=== PATIENT | female | born 1985 | race Hispanic/Latino ===

== ENCOUNTER 2019-03-16 21:37 | Inpatient (IN) | payer BC ==
[2019-03-16 22:00] VITALS: BMI 25.0
[2019-03-16] MEDS ORDERED: Lactated Ringer's 1,000 ML IV ONE (22:21)
[2019-03-16] MEDS ORDERED: Lactated Ringer's 1,000 ML IV SCH (22:30)
[2019-03-17] MEDS ORDERED: Lactated Ringer's 1,000 ML IV ONE (00:16)
[2019-03-17] MEDS ORDERED: Oxytocin 30 UNIT in NS 500 ml 30 UNITS/500 ML BAG IV ONE ×3 (00:17→11:21)
[2019-03-17] MEDS ORDERED: OXYTOCIN/0.9 % NS 20 UNIT/1,000 ML BAG IV SCH (00:30)
[2019-03-17 00:50] LABS: BASO % 0.3 % (0.0-2.0); EOS % 0.1 % (0.0-4.0); HEMOGLOBIN 12.8 g/dL (12.0-16.0); LYMPH # 1.2 K/uL (1.0-4.3); LYMPH % 8.6 % (20.0-40.0); MEAN CELL VOLUME 86.3 fl (81.0-99.0); MEAN CORPUSCULAR HEMOGLOBIN 28.9 pg (27.0-31.0); MEAN CORPUSCULAR HGB CONC 33.5 g/dL (33.0-37.0); MEAN PLATELET VOLUME 8.7 fl (7.2-11.7); MONO # 0.8 K/uL (0.0-0.8); MONO % 5.7 % (0.0-10.0); NEUT # 12.3 K/uL (1.8-7.0); NEUT % 85.3 % (50.0-75.0); PLATELET COUNT 203 K/uL (130-400); RBC 4.44 Mil/uL (3.80-5.20); WHITE BLOOD COUNT 14.4 K/uL (4.8-10.8)
[2019-03-17] MEDS: Lactated Ringer's 1,000 ML IV SCH ×2 (01:43→02:04)
[2019-03-17 01:44] LABS: BANDS 2 % (0-2); LYMPHOCYTE 9 % (20-50); MONOCYTE 7 % (0-10); NEUTROPHIL 82 % (42-75); TOTAL CELLS COUNTED 100
[2019-03-17 01:46] LABS: BURR CELLS SLIGHT; LARGE PLATELETS PRESENT
[2019-03-17 01:48] LABS: PLATELET ESTIMATE NORMAL (NORMAL)
[2019-03-17] MEDS ORDERED: Bupivacaine HCl 0.5% PF (30 ml) Inj ONE (01:49)
[2019-03-17] MEDS ORDERED: Fentanyl/Bupivacaine HCl 250 ML EPI ONE (01:49)
--- NOTE | 2019-03-17 06:19 | OBHP ---
Datetime: 03/17/2019 01:04 IP Adm Impression: Term, intrauterine ; No Active Labor; Intact Membranes IP Chief Complaint Other: Painful CTX Pelvic Type - PN: Adequate Extremities - PN: Normal Abdomen - PN: Normal Back - PN: Normal Breast - PN: Not Done Lungs - PN: Normal Heart - PN: Normal Thyroid - PN: Normal Neurologic - PN: Normal HEENT - PN: Normal General - PN: Normal Presentation-Admit: Vertex FHR - Baseline A Provider: 125 Comments, ACOG Physical Exam: heart s1 s2 no extra heart sound lung clear abd BS+ non-tender Cervix 3, 75, -2 Gestation - Est Wks by US: 39.6 EGA AdmitDate IP: 39.6 Vital Signs Provider: Reviewed; Within Normal Limits IP Chief Complaint: Uterine contractions NICHD Variability Prov Fetus A: Moderate 6-25bpm NICHD Accel Fetus A IP Provider: 15X15 FHR Category Provider Fetus A: Category I Dilatation, Provider: 3 Effacement, Provider: 75 Station, Provider: -2 Genitourinary Exam: Normal DTRs - PN: Normal Datetime: 03/16/2019 22:04 IP Admit Plan: Observation/Evaluation Admit Comment, IP Provider: A 33 yo female 39.5 wk present to MICHELLE due to contraction started at 16:00 03/16/19. Pt state contraction increased from every 5 min to every 3min, Pt also report pin k discharge but no vaginal bleeding or water gush. Otherwise patient report good movement, she denies any nausea or vomiting, chest pain sob, abd pian, diarrhea, constipation or any other symptoms . pt report no complication during except for echogenic bowel and abdominal cirumference l agging in baby which she have been following with her doctor. PT last US last week vertex. PCP Dr. Tavo Onofre. Allergy Amox- hives medication: PNV PMH none PSH none PFH dad , mom healthy OBGYN none Social denies smoke drink or drug use. 22:29 Assessment and plan A 33 yo female 39.5 wk present to MICHELLE due to contraction started at 16:00 03/16/19. Contraction noted on tocometer strip reassuring vitals WNL Cervix 2-3, 50, -2 Send to L_D to observe follow up with change Shiv PGY1 Case discussed with Dr delgadillo OB Hospitalist note. Pt was examiend by me. chart reviewed. She wants to ambualte and see how her pain is. Currently she doees not want parisi managment. Discussion with pt about labor, pa in management options, delivery and care. She understands. Her qustions answered. KEATON DO Membranes, Provider: Intact Pool Provider: Negative Nitrazine Provider: IP Hx Assessment: The History has been Reviewed and is Current NICHD Decel Fetus A IP Provider: None
[2019-03-17] MEDS ORDERED: Lactated Ringer's 1,000 ML IV SCH (07:30)
--- NOTE | 2019-03-17 07:42 | OBPN ---
Datetime: 03/17/2019 07:20 IP Progress Impression: Normal progression of labor; Reassuring heart rate IP Progress Plan: Continue present management; Anticipate Vaginal Delivery Pool Provider: Positive Membranes, Provider: Ruptured Amniotic Fluid Color, Provider: Meconium, Light Contraction Comments Provider: occ FHR - Baseline A Provider: 140 Presentation-Admit: Vertex IP Progress Note Comment: She had epidural and feels muhc better - legs feel heavy and does't feel C TX pain. She had SROM/thick meconium at 4:20am. She was checked and SVE 4cm. She has occ CTX on yeni o. occ decels noted with recovery. When placed on lef tside, FHR tracing improved SVE 7-8cm good progress Hx thick mec - currently it appears light mec A: Active phase of labor PLAN: coninue to monitor FHR/labor progress Left lateral/IVF/O2 NICHD Accel Fetus A IP Provider: 10X10 FHR Category Provider Fetus A: Category I NICHD Variability Prov Fetus A: Moderate 6-25bpm Dilatation, Provider: 7-8 Effacement, Provider: 90 Station, Provider: -1 Datetime: 03/17/2019 01:04 Gestation - Est Wks by US: 39.6 Vital Signs Provider: Reviewed; Within Normal Limits Datetime: 03/16/2019 22:04 Nitrazine Provider: MINISTERIO Decel Fetus A IP Provider: None
[2019-03-17] MEDS ORDERED: Lidocaine 1% Inj (20ml) ONE (09:31)
[2019-03-17] MEDS ORDERED: Benzocaine/Menthol SPRAY TOP PRN ×2 (11:21→12:39)
[2019-03-17] MEDS ORDERED: Oxycodone/Acetaminophen 5/325 mg Tab PO PRN ×2 (11:21→12:39)
[2019-03-17] MEDS ORDERED: OXYTOCIN/0.9 % NS 20 UNIT/1,000 ML BAG IV ONE (11:21)
--- NOTE | 2019-03-17 12:44 | OBDS ---
DELIVERY PERSONNEL Delivery Doctor: Ashtyn Vo MD Ct Scan Technician: Chloe Miranda RN; Miquel Rodriguez RN Anesthesiologist: Dr. Richards MATERNAL INFORMATION Delivery Anesthesia: Epidural Medications in Delivery: 30mu pitocin in 500ml of .9% NS Placenta Cultured: No Maternal Complications: None Provider Comments: Delivered a live baby boy 10:02 AM the baby was bulb suctioned on the perineum th en transferred to maternal chest. The cord was clamped and cut 3 vessels noted cord blood was obtain ed and sent to the lab. The placenta was delivered at 10:06 AM intact. The estimated blood loss was 250 cc. The mother tolerated the procedure well there was a first-degree laceration was repaired wi th 2-0 repeat. There is also vaginal abrasion packing was placed. The baby went to the [facility] with Apgars of [phone] g LABOR SUMMARY EDC: 03/18/2019 00:00 No. Babies in Womb: 1 Attempted: No Labor Anesthesia: Epidural LABOR INFORMATION Reason for Induction: Not Applicable Onset of Labor: 03/16/2019 16:00 Complete Dilatation: 03/17/2019 09:06 Oxytocin: N/A Group B Beta Strep: Negative Antibiotics # of Doses: 0 Antibiotics Time of Last Dose: n/a Steroids Given: None Reason Steroids Not Administered: Not Applicable MEMBRANES Membranes Rupture Method: Spontaneous Rupture of Membranes: 03/17/2019 04:20 Length of Rupture (hrs): 5.70 Amniotic Fluid Color: Heavy Meconium Amniotic Fluid Amount: Moderate Amniotic Fluid Odor: Normal STAGES OF LABOR Stage 1 hrs: 17 Stage 1 min: 6 Stage 2 hrs: 0 Stage 2 min: 56 Stage 3 hrs: 0 Stage 3 min: 3 Total Time in Labor hrs: 18 Total Time in Labor min: 5 VAGINAL DELIVERY Episiotomy: None Laceration Extension: First Degree Laceration Type: Vaginal Laceration Repair: Yes Initial Vag Sponge Count: 10 Final Vag Sponge Count: 10 Initial Vag Sharps Count: 2 Final Vag Sharps Count: 2 Sponge Count Correct: Yes Sharps Count Correct: Yes BABY A INFORMATION Infant Delivery Date/Time: 03/17/2019 10:02 Method of Delivery: Vaginal Born in Route : No : N/A Forceps: N/A Vacuum Extraction: N/A Shoulder Dystocia : No SHOULDER DYSTOCIA BABY A Infant Delivery Date/Time: 03/17/2019 10:02 PRESENTATION/POSITION BABY A Presentation: Cephalic Cephalic Presentation: Vertex Breech Presentation: N/A PLACENTA INFORMATION BABY A Placenta Delivery Time : 03/17/2019 10:05 Placenta Method of Delivery: Spontaneous Placenta Status: Delivered SCORES BABY A Heart Rate 1 min: >100 bpm Resp Effort 1 min: Good Cry Reflex Irritability 1 min: Cough or Sneeze or Pulls Away Muscle Tone 1 min: Active Motion Color 1 min: Body [place], Extremities Blue Resuscitation Effort 1 min: Tactile Stimulation SCORE 1 MIN: 9 Heart Rate 5 min: >100 bpm Resp Effort 5 min: Good Cry Reflex Irritability 5 min: Cough or Sneeze or Pulls Away Muscle Tone 5 min: Active Motion Color 5 min: Body [place], Extremities Blue SCORE 5 MIN: 9 INFANT INFORMATION BABY A Gestational Age at Delivery: 39.6 Gestational Status: Term Outcome : Liveborn Infant Condition : Stable Infant Sex: Male IDENTIFICATION/MEDS BABY A ID Band Number: [id number] ID Band Location: Left Leg; Left Arm WEIGHT/LENGTH BABY A Birthweight (gms): 3435 Infant Weight (lb): 7 Infant Weight (oz): 9 CORD INFORMATION BABY A No. Cord Vessels: 3 Nuchal Cord : N/A Cord Blood Taken: Yes Suction: Mouth; Nose ASSESSMENT BABY A Complications: None Physical Findings at Delivery: Within Normal Limits Infant Respirations: Appears Normal Home Performance Laborer/ALS Called : No Transferred To: Remains with Mother
[2019-03-18 06:38] LABS: BASO # 0.1 K/uL (0.0-0.2); BASO % 0.6 % (0.0-2.0); EOS # 0.1 K/uL (0.0-0.7); EOS % 0.9 % (0.0-4.0); HEMOGLOBIN 9.6 g/dL (12.0-16.0); LYMPH # 1.3 K/uL (1.0-4.3); LYMPH % 12.5 % (20.0-40.0); MEAN CELL VOLUME 88.1 fl (81.0-99.0); MEAN CORPUSCULAR HEMOGLOBIN 29.9 pg (27.0-31.0); MEAN CORPUSCULAR HGB CONC 33.9 g/dL (33.0-37.0); MEAN PLATELET VOLUME 8.7 fl (7.2-11.7); MONO # 0.7 K/uL (0.0-0.8); MONO % 6.7 % (0.0-10.0); NEUT # 8.4 K/uL (1.8-7.0); NEUT % 79.3 % (50.0-75.0); RBC 3.21 Mil/uL (3.80-5.20); RED CELL DISTRIBUTION WIDTH 13.6 % (11.5-14.5); WHITE BLOOD COUNT 10.5 K/uL (4.8-10.8)
--- NOTE | 2019-03-19 08:34 | OBPPN ---
Datetime: 03/18/2019 08:27 PP Pain Prov: Within normal limits PP Nausea Prov: Denies PP Flatus Prov: Yes PP BM Prov: Yes PP Breasts Prov: Normal PP Heart Prov: Normal PP Lungs Prov: Normal PP Abdomen/Uterus Prov: Normal PP Lochia Prov: Normal PP Vulva/Perineum Prov: Normal PP CVA Tenderness Prov: Normal PP Extremities Prov: Normal PP C/S Incision Prov: Normal PP Progress Prov: Normal PP Comments Phys Exam Prov: Abdomen soft, nontender, nondistended Uterus firm, below umbilicus No deep calf tenderness bilaterally PP Impression Prov: Normal progression PP Plan Prov: Continue present management PP Progress Note Prov: day #1 status post , patient recovering well Continue current management, anticipate discharge home tomorrow IP PP Procedures: None Vital Signs Provider PP: Reviewed; Within Normal Limits
--- NOTE | 2019-03-19 14:18 | OBDCSUM ---
Datetime: 03/19/2019 14:16 Discharged to, Provider: Home Follow up at, Provider: OB Office Disch Instr Activity: Normal activity Disch Instr Diet: Regular Discharge Instructions, Provider: Routine instructions given Discharge Diagnosis, Provider: Term Delivered Discharge Time: 03/19/2019 14:16 Follow up in weeks, Provider: 6 weeks Disch Referrals: None Contraception discussed, Prov: Yes Discharge Comment, Provider: S/P Uncomplicated , Clinically Stable Discharge Diagnosis Prov Other: S/P Uncomplicated , Clinically Stable
--- NOTE | 2019-03-19 14:18 | OBPPN ---
Datetime: 03/19/2019 14:14 PP Pain Prov: Within normal limits PP Nausea Prov: Denies PP Flatus Prov: Yes PP Breasts Prov: Normal PP Heart Prov: Normal PP Lungs Prov: Normal PP Abdomen/Uterus Prov: Normal PP Lochia Prov: Normal PP Vulva/Perineum Prov: Normal PP CVA Tenderness Prov: Normal PP Extremities Prov: Normal PP Comments Phys Exam Prov: Abd:soft, NT, BS- present UT- Firm, fundus below umbilicus PP Impression Prov: Normal progression PP Plan Prov: Discharge PP Progress Note Prov: S/P , Clinically Stable. Plan: Discharge Home. Vital Signs Provider PP: Reviewed
[2019-03-19 23:30] VITALS: BP 130/70; PULSE 95; RESP 20; TEMP 98.5; O2SAT 100
== END 2019-03-19 14:00 | disposition home or self-care (01) | DRG 807 ==
LOC: H.EROB2 21:37 → H.L&D 03-17 00:16 → H.OB/GYN 03-17 12:30
PROVIDERS: ADMIT Obstetrics & Gynecology Gynecology; ATTEND Obstetrics & Gynecology Gynecology
PROC: 10E0XZZ Delivery of Products of Conception, External Approach (ICD-10-PCS; principal; 2019-03-17)
PROC: 0HQ9XZZ Repair Perineum Skin, External Approach (ICD-10-PCS; 2019-03-17)
PROC: 4A1HXCZ Monitoring of Products of Conception, Cardiac Rate, External Approach (ICD-10-PCS; 2019-03-17)
DX: O77.0 Labor and delivery complicated by meconium in amniotic fluid (principal); Z37.0 Single live birth; O70.0 First degree perineal laceration during delivery; Z3A.39 39 weeks gestation of pregnancy